=== PATIENT | male | born 1955 | race Caucasian/White ===

== ENCOUNTER 2016-09-09 00:04 | Inpatient (IN) | payer OTHER ==
[~2016-09-09] VITALS: Ht 182.9 cm; Wt 82.5 kg
[2016-09-09 04:15] VITALS: BP 140/79; PULSE 99; RESP 18; TEMP 97.4; O2SAT 99
[2016-09-09] MEDS ORDERED: MAGNESIUM HYDROXIDE SUSP 30 ML CUP PO PRN (05:30)
[2016-09-09] MEDS ORDERED: diphenhydrAMINE HCL 50 MG/ML VIAL IM PRN (05:30)
[2016-09-09] MEDS ORDERED: ACETAMINOPHEN 325 MG TAB PO PRN ×2 (05:30→12:15)
[2016-09-09] MEDS ORDERED: diphenhydrAMINE HCL 50 MG CAP PO PRN (05:30)
[2016-09-09] MEDS ORDERED: ALUMINUM/MAGNESIUM/SIMETH 30 ML CUP PO PRN (05:30)
[2016-09-09] MEDS ORDERED: hydrOXYzine HCL 50 MG TAB PO PRN (05:30)
[2016-09-09 06:09] VITALS: BP 151/90; PULSE 101; RESP 18; TEMP 97.7; O2SAT 96
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
--- NOTE | 2016-09-09 12:29 | HHI.DS ---
Psychiatry Discharge Summary Inpatient Psychiatric care?: Yes Advance Directive: No Reason Not Provided: Due to Patient Condition Mental Health AdvanceDirective: No Health Care Proxy: No Admission Admission Date Sep 09, 2016 at 01:37 Admission Diagnosis: (1) Cocaine abuse ICD Code: F14.10 (2) Alcohol abuse with intoxication ICD Code: F10.129 (3) Substance induced mood disorder ICD Code: F19.94 Brief History Patient is a 61-year-old white male was initially seen at [facility] with the Mendes act signed by grace oscar dated 09/08/16 at 1500 hrs. Stating patient complains of depression crying wanting to kill himself. Patient seen screen and that ED urine toxicology positive for cocaine and opiates alcohol level of 264. Patient medically cleared and transferred to this facility. At the present time patient sitting quietly in his room on 2700 nurse Mai present throughout session. Patient is alert oriented calm cooperative stating he doesn't remember what he said last night. He states he was in [place] has been done here for about a week or so visiting a girlfriend. She also drinks the gabapentin argument last night. He also states he had the opportunity to smoke some marijuana and cocaine and he did it. He states his alcohol use is intermittent. More binge drinker. He states his cocaine is also somewhat opportunistic. He denies suicidality homicidality voices or visions. 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 In any event at the present time patient no longer meets criteria under the Mendes act for involuntary psychiatric hospitalization. I will lift Mendes act allow patient to be discharged from self no Rx by me. Patient does have schedule medication at home but he may continue. He is planning a stay down here for about another week return home to [place] to follow-up [place] outpatient clinic of [place] location Tobacco Use In Past 30 Days: 5 or More Cigarettes/Day Alcohol Use: Monthly or Less Hospital Course Please see above note under brief history. Patient does not meet criteria for an involuntary inpatient psychiatric hospitalization. He denies suicidality homicidality voices or visions is able contracted to no harm Thus I'll lift the Mendes act allow patient to be discharged from self no Rx by me follow-up [place] clinic either in town or in his home town in [place] Results Blood Pressure 151 / 90 Vital Signs Date Time Temp Pulse Resp B/P Pulse Ox O2 Delivery O2 Flow Rate FiO2 09/09/16 06:09 97.7 101 18 151/90 96 Leg results from [facility] urine toxicology positive for cocaine and opiates protocol level of 264 Summary of Procedures None done Pending results at discharge: No Medications # of Antipsychotic meds at D/C: 0 Approp Antipsych med options 1 - Minimum of three failed multiple trials of monotherapy. 2 - Documented plan to taper to monotherapy due to previous use of multiple meds OR cross-taper in progress at D/C. 3 - Documentation of augmentation of Clozapine. 4 - Justification other than those listed in allowable values 1-3, document here : Discharge Discharge Date: Sep 09, 2016 Discharge Diagnosis: (1) Cocaine abuse Diagnosis: Secondary ICD Code: F14.10 (2) Alcohol abuse with intoxication Diagnosis: Secondary ICD Code: F10.129 (3) Substance induced mood disorder Diagnosis: Principal ICD Code: F19.94 Mental Status Exam at Disch Alert origin white male calm cooperative with me he is normal active, mood is euthymic to mildly irritable affect shows good range intensity. Speech rate and rhythm within normal limits though no formal thought disorders. Auditory visual hallucinations no delusions. Insight and judgment is poor cognition grossly intact Pt Condition on Discharge: Stable Discharge Disposition: Discharge Home Discharge Instructions Diet Instructions: As Tolerated, No Restrictions Activities you can perform: Regular-No Restrictions Scheduled Appointment: follow-up [facility] clinic here in town or in home town in [place] Discharge Time > 30 minutes Discharge/Advance Care Plan Health Problems: (1) Alcohol abuse with intoxication (2) Substance induced mood disorder (3) Cocaine abuse Goals to promote your health * To prevent worsening of your condition and complications * To maintain your health at the optimal level Directions to meet your goals Take your medications as prescribed Follow your dietary instruction Follow activity as directed Keep your appointments as scheduled Take your immunizations and boosters as scheduled If your symptoms worsen call your PCP, if no PCP go to Urgent Care Center or Emergency Room For 12/02 questions related to your inpatient stay or results of tests pending at discharge, please contact Dr. Jaison Roland at Smoking is Dangerous to Your Health. Avoid second hand smoking Jaison Roland MD Sep 09, 2016 12:29
== END 2016-09-09 14:55 | disposition home or self-care (01) | DRG 897 ==
LOC: H270 01:37
PROVIDERS: ADMIT Psychiatry & Neurology Psychiatry; ATTEND Psychiatry & Neurology Psychiatry
DX: F10.129 Alcohol abuse with intoxication, unspecified (principal); F19.94 Other psychoactive substance use, unspecified with psychoactive substance-induced mood disorder; F14.10 Cocaine abuse, uncomplicated; G89.29 Other chronic pain; M54.9 Dorsalgia, unspecified; Z89.412 Acquired absence of left great toe; Z72.0 Tobacco use